=== PATIENT | male | born 1975 | race Caucasian/White ===

== ENCOUNTER 2016-10-28 01:05 | Emergency (ER) | payer SELFPAY ==
[2016-10-28 01:14] VITALS: BP 128/97; BMI 28.1
--- NOTE | 2016-10-28 01:35 | DR.GENAD ---
HPI - PCP Primary Care Physician: nfd - Complaint/Symptoms Chief Complaint:: Patient c/o body swelling and shortness of breath for several months - Nurses notes reviewed Nurses Notes Review: Yes - Source History Provided: Patient - Mode of Arrival Mode of Arrival: Ambulatory - Timing Onset of Chief Complaint: 08/31/16 Came on: Gradually - Duration Duration: Constant How lon Duration: Weeks - Location Location: [facility] - Severity Severity: Mild - Modifying Factors Worsens:: nothing - Associated Signs and Symptoms Associated Signs and Symptoms: fidgety PMH - PMH Past Medical History: No Past Surgical History: Yes Surgical History: Ortho Surgery Past Surgical History Comment: neck - Family History History of Family Medical Conditions: Yes Family Medical History: MD - Social History Does patient currently use any type of tobacco product: Yes Have you used tobacco products in the last 12 months: Yes Type of Tobacco Use: Cigarettes How many years tobacco product used: 16 Alcohol Use: Occasionally Do you use any recreational Drugs:: No (Patient denies drugs but stated "I was at a [employer] party & my friends got me high") Lives Where: Home - infectious screening In the last 2 months have you had wt loss of >10#?: NO Have you had fever, night sweats or hemotysis?: No Have you traveled outside the country in the last 6 months?: No Isolation: Standard ROS - Review of Systems Constitutional: No Symptoms Reported Eyes: No Symptoms Reported ENTM: No Symptoms Reported Respiratoy: Short of Breath Cardiovascular: No Symptoms Reported Gastrointestinal/Abdominal: No Symptoms Reported Genitourinary: No Symptoms Reported Neurological: No Symptoms Reported Musculoskeletal: No Symptoms Reported Integumentary: No Symptoms Reported Psychiatric: Anxiety PE - Vital Signs Vitals: Pulse Rate 144 Respiratory Rate 23 Blood Pressure 128/97 O2 Sat by Pulse Oximetry 100 - General Limitations: No Limitations General Appearance: Alert, In No Apparent Distress - Head Head Exam: Normal Inspection - Eyes Eye exam: Normal Appearance, EOMI. negative: Scleral Icterus, Conjunctival Injection - ENT ENT Exam: Normal Oropharynx External Ear Exam: Normal External Inspection - Neck Neck Exam: Normal Inspection, Full ROM, Trachea Midline - Chest Chest Inspection: Normal Inspection - Respiratory Respiratory Exam: Normal Lung Sounds Bilat. negative: Accessory Muscle Use, Respiratory Distress Respiratory Exam: Bilateral Clear to Auscultation - Cardiovascular Cardiovascular Exam: Tachycardia - Abdominal Exam Abdominal Exam: Normal Inspection, Normal Bowel Sounds, Soft, Distention. negative: Tenderness, Guarding - Extremities Extremities Exam: Normal Inspection, Full ROM, Edema - Back Back Exam: Normal Inspection - Neurologic Neurological Exam: Alert, Oriented X3, CN II-XII Intact - Psychiatric Psychiatric Exam: Agitated - Skin Skin Exam: Intact, Normal Color Course - Treatment Treatment: patient told of findings and refused admission due to mother with alzheimers at home. told to follow up [facility] DR. pleitez for further work up. ROR - Labs Reviewed Result Diagrams: 10/28/16 01:56 10/28/16 01:56 Laboratory: WBC 12.7 X10^3/uL (3.6-10.0) H 10/28/16 01:56 RBC 4.70 X10^6/uL (4.7-6.0) 10/28/16 01:56 Hgb 8.8 g/dL (13.5-18.0) L 10/28/16 01:56 Hct 30.4 % (42.0-54.0) L 10/28/16 01:56 MCV 64.7 fL (80.0-100.0) L 10/28/16 01:56 MCH 18.8 pg (27.0-34.0) L 10/28/16 01:56 MCHC 29.0 g/dL (33.0-35.0) L 10/28/16 01:56 RDW 19.9 % (11.6-16.5) H 10/28/16 01:56 Plt Count 453 X10^3/uL (150.0-450.0) H 10/28/16 01:56 MPV 8.0 fL (7.4-11.0) 10/28/16 01:56 Neut % 77.0 % (42.0-75.0) H 10/28/16 01:56 Lymph % 5.8 % (21.0-51.0) L 10/28/16 01:56 [place] % 14.1 % (0.0-13.0) H 10/28/16 01:56 Eos % 2.6 % (0.9-2.9) 10/28/16 01:56 Baso % 0.5 % (0.2-1.0) 10/28/16 01:56 Neut # 9.8 x10^3/uL (2.2-4.8) H 10/28/16 01:56 Lymph # 0.7 X10^3/uL (1.3-2.9) L 10/28/16 01:56 [place] # 1.8 x10^3/uL (0.3-0.8) H 10/28/16 01:56 Eos # 0.3 x10^3/uL (0.0-0.2) H 10/28/16 01:56 Baso # 0.1 X10^3/uL (0.0-0.1) 10/28/16 01:56 Absolute Nucleated RBC 0.3 /100WBC 10/28/16 01:56 Sodium 134 mmol/L (136-145) L 10/28/16 01:56 Corrected Sodium TNP 10/28/16 01:56 Potassium 5.2 mmol/L (3.5-5.1) H 10/28/16 01:56 Chloride 99 mmol/L (98-107) 10/28/16 01:56 Carbon Dioxide 21.4 mmol/L (21-32) 10/28/16 01:56 BUN 18 mg/dL (7-18) 10/28/16 01:56 Creatinine 1.21 mg/dL (0.70-1.30) 10/28/16 01:56 Est GFR (MDRD) Af Amer > 60 (>60) 10/28/16 01:56 Est GFR (MDRD) Non-Af > 60 (>60) 10/28/16 01:56 Glucose 92 mg/dL (65-99) 10/28/16 01:56 Calcium 8.3 mg/dL (8.5-10.1) L 10/28/16 01:56 Corrected Calcium 9.2 mg/dL (8.5-10.1) 10/28/16 01:56 Total Bilirubin 1.40 mg/dL (0.2-1.0) H 10/28/16 01:56 AST 758 Units/L (15-37) H 10/28/16 01:56 ALT 773 Units/L (12-78) H 10/28/16 01:56 Alkaline Phosphatase 95 Units/L (46-116) 10/28/16 01:56 Ammonia 28 umol/L (11-32) 10/28/16 01:56 B-Natriuretic Peptide 1140 pg/mL (0-79) H* 10/28/16 01:56 Total Protein 6.7 g/dL (6.4-8.2) 10/28/16 01:56 Albumin 2.9 g/dL (3.4-5.0) L 10/28/16 01:56 Globulin 3.8 g/dL (2.5-4.5) 10/28/16 01:56 Albumin/Globulin Ratio 0.8 Ratio (1.1-2.1) L 10/28/16 01:56 Lipase 108 Units/L (73-393) 10/28/16 01:56 Specimen Type Clean catch urine 10/28/16 01:37 Urine Color Marielle (YELLOW) 10/28/16 01:37 Urine Appearance Slightly hazy (CLEAR) 10/28/16 01:37 Urine pH 5.0 (5.0 - 8.0) 10/28/16 01:37 Ur Specific [place] 1.025 (1.000-1.030) 10/28/16 01:37 Urine Protein 3+ (NEGATIVE) 10/28/16 01:37 Urine Glucose (UA) Negative (NEGATIVE) 10/28/16 01:37 Urine Ketones 1+ (NEGATIVE) 10/28/16 01:37 Urine Occult Blood 1+ (NEGATIVE) 10/28/16 01:37 Urine Nitrite Negative (NEGATIVE) 10/28/16 01:37 Urine Bilirubin 1+ (NEGATIVE) 10/28/16 01:37 Urine Urobilinogen 3+ (NORMAL) 10/28/16 01:37 Ur Leukocyte Esterase 1+ (NEGATIVE) 10/28/16 01:37 Urine RBC 2-6 /HPF (NEGATIVE) 10/28/16 01:37 Urine WBC 10-15 /HPF (NEGATIVE) 10/28/16 01:37 Ur Squamous Epith Cells Few /HPF (NEGATIVE) 10/28/16 01:37 Urine Bacteria Trace /HPF (NEGATIVE) 10/28/16 01:37 Ur Culture Indicated? Yes/culture set up 10/28/16 01:37 Urine Opiates Screen Negative (NEG=<300) 10/28/16 01:37 Urine Methadone Screen Negative (NEG=<300) 10/28/16 01:37 Ur Barbiturates Screen Negative (NEG=<200) 10/28/16 01:37 Ur Phencyclidine Scrn Negative (NEG=<25) 10/28/16 01:37 Ur Amphetamines Screen Positive (NEG=<1000) 10/28/16 01:37 U Benzodiazepines Scrn Negative (NEG=<200) 10/28/16 01:37 Urine Cocaine Screen Negative (NEG=<300) 10/28/16 01:37 U Marijuana (THC) Screen Negative (NEG=<50) 10/28/16 01:37 Ethyl Alcohol mg/dL < 3 mg/dL (0-19.9) 10/28/16 01:56 - XRAY XRAY Interpreted by: Radiologist XRAY Findings: chest: cardiomegaly no chf - Diagnosis Discharge Problem: Amphetamine abuse Cirrhosis of liver Qualifiers: Hepatic cirrhosis type: unspecified hepatic cirrhosis Ascites presence: with ascites Qualified Code(s): K74.60 - Unspecified cirrhosis of liver Cirrhosis of liver Qualifiers: Hepatic cirrhosis type: unspecified hepatic cirrhosis Ascites presence: with ascites Qualified Code(s): K74.60 - Unspecified cirrhosis of liver Cirrhosis of liver Qualifiers: Hepatic cirrhosis type: unspecified hepatic cirrhosis Ascites presence: with ascites Qualified Code(s): K74.60 - Unspecified cirrhosis of liver Cirrhosis of liver with ascites Qualifiers: Hepatic cirrhosis type: unspecified hepatic cirrhosis Qualified Code(s): K74.60 - Unspecified cirrhosis of liver - Discharge Plan Condition: Stable Prescriptions: Furosemide [Lasix] 40 mg PO QAM #30 tab - Follow ups/Referrals Follow ups/Referrals: NFD,None [Primary Care Provider] - 3 days - Instructions
[2016-10-28] MEDS ORDERED: NS 500 ML IV 1,000 ML IV ONE (01:46)
[2016-10-28] MEDS ORDERED: NS 1000 ML 1,000 ML ONE (01:50)
--- NOTE | 2016-10-28 02:01 | RAD ---
EXAM: Chest X-ray INDICATION: Shortness of breath COMPARISION: No prior TECHNIQUE: PA and Lat, 2 view FINDINGS: The lungs are clear. The heart is mildly enlarged. No pleural effusion or pneumothorax. The mediasti num is normal. The regional skeleton is intact. IMPRESSION: Cardiomegaly. The remainder of the examination appears unremarkable. Reported By:
[2016-10-28 02:08] LABS: BILIRUBIN,URINE 1+ (NEGATIVE); BLOOD/HEMOGLOBIN,URINE 1+ (NEGATIVE); GLUCOSE, URINE NEGATIVE (NEGATIVE); KETONES,URINE 1+ (NEGATIVE); LEUKOCYTE ESTERASE ,URINE 1+ (NEGATIVE); NITRITES,URINE NEGATIVE (NEGATIVE); PROTEIN,URINE 3+ (NEGATIVE); UROBILINOGEN,URINE 3+ (NORMAL)
[2016-10-28 02:12] LABS: BASOPHILS # (AUTO) 0.1 X10^3/uL (0.0-0.1); BASOPHILS % (AUTO) 0.5 % (0.2-1.0); EOSINOPHILS # (AUTO) 0.3 x10^3/uL (0.0-0.2); EOSINOPHILS % (AUTO) 2.6 % (0.9-2.9); HEMATOCRIT 30.4 % (42.0-54.0); HEMOGLOBIN 8.8 g/dL (13.5-18.0); LYMPHOCYTES # (AUTO) 0.7 X10^3/uL (1.3-2.9); LYMPHOCYTES % (AUTO) 5.8 % (21.0-51.0); MEAN CORPUSCULAR HEMOGLOBIN 18.8 pg (27.0-34.0); MEAN CORPUSCULAR VOLUME 64.7 fL (80.0-100.0); MONOCYTES # (AUTO) 1.8 x10^3/uL (0.3-0.8); MONOCYTES % (AUTO) 14.1 % (0.0-13.0); NEUTROPHILS # (AUTO) 9.8 x10^3/uL (2.2-4.8); PLATELET COUNT 453 X10^3/uL (150.0-450.0); RED CELL DISTRIBUTION WIDTH 19.9 % (11.6-16.5); WHITE BLOOD COUNT 12.7 X10^3/uL (3.6-10.0)
[2016-10-28 02:18] LABS: AMMONIA 28 umol/L (11-32)
[2016-10-28 02:22] LABS: ALANINE AMINOTRANSFERASE 773 Units/L (12-78); ALBUMIN 2.9 g/dL (3.4-5.0); ALKALINE PHOSPHATASE 95 Units/L (46-116); ASPARTATE AMINO TRANSFERASE 758 Units/L (15-37); BLOOD ALCOHOL < 3 mg/dL (0-19.9); BLOOD UREA NITROGEN 18 mg/dL (7-18); CALCIUM 8.3 mg/dL (8.5-10.1); CARBON DIOXIDE 21.4 mmol/L (21-32); CHLORIDE 99 mmol/L (98-107); COR CA(FOR HYPOALB) 9.2 mg/dL (8.5-10.1); CREATININE 1.21 mg/dL (0.70-1.30); GLUCOSE 92 mg/dL (65-99); LIPASE 108 Units/L (73-393); SODIUM 134 mmol/L (136-145); TOTAL PROTEIN 6.7 g/dL (6.4-8.2); eGFR BLACK RACES > 60 (>60); eGFR NON BLACK RACES > 60 (>60)
[2016-10-28 02:29] LABS: B-TYPE NATRIURETIC PEPTIDE 1140 pg/mL (0-79)
[2016-10-28 02:34] LABS: APPEARANCE,URINE SLIGHTLY HAZY (CLEAR); BACTERIA,URINE TRACE /HPF (NEGATIVE); COLOR,URINE AMBER (YELLOW); SQUAMOUS EPITHELIAL CELL,UR FEW /HPF (NEGATIVE)
[2016-10-28] MEDS ORDERED: KAYEXALATE PO ONE (02:56)
[2016-10-28 02:58] LABS: ANISOCYTOSIS SLIGHT; HYPOCHROMASIA 3+; MICROCYTOSIS 2+; PLATELET MORPHOLOGY COMMENT NORMAL (NORMAL)
[2016-10-28 03:06] LABS: BAND NEUTROPHILS % 2 % (0-10)
[2016-10-28] MEDS ORDERED: LASIX PO ONE (03:07)
[2016-10-28] MEDS ORDERED: LASIX ONE (03:08)
[2016-10-28] MEDS ORDERED: KAYEXALATE ONE (03:14)
== END 2016-10-28 03:30 | disposition home or self-care (01) ==
LOC: ER 01:05
DX: K74.60 Unspecified cirrhosis of liver (principal); F15.10 Other stimulant abuse, uncomplicated; R06.02 Shortness of breath
CPT/HCPCS: 36415; 71020; 80053; 80307; 80320; 81001; 82140; 83690; 83880; 85025; 87086; 96365; 99283; A4222; G0434; G6040

== ENCOUNTER 2017-01-27 01:22 | Emergency (ER) | payer SELFPAY ==
[2017-01-27 01:30] VITALS: BMI 28.1
--- NOTE | 2017-01-27 02:01 | DR.CP ---
HPI - Time Seen Time seen: 01:50 - PCP Primary Care Physician: RADHA - HPI Comment HPI Comment: PATIENT WITH CHRONIC LIVER DISEASE WITH ASCITIS PRESENT WITH CHEST HEAVINESS AND INCREASING SOB. PATIENT HAVE ASCITIS THAT IS INCREASING. NO FEVER.OR CONFUSION REPORTED. PATIENT SAID HIS SYMTOMS ARE WORSE TONIGHT. - Complaint Chief Complaint Doctor Comments: SOB, HEAVINESS IN CHEST TIMES Chief Complaint:: HEAVYNESS IN CHEST,SOB - Reviewed Nurses Notes Review: Yes - Source History Provided: Patient - Mode of Arrival Mode of Arrival: Wheelchair - Timing Onset of Chief Complaint: 01/27/17 Came on: Gradually Pain: Present Now - Duration Duration: Constant Duration: Days - Location Location of Chest Pain: Left, Chest - Context Onset: At rest, With light exertion PE Risk Factors: None PMH - PMH Past Medical History: Yes Past Medical History: Cirrhosis Past Surgical History: Yes Surgical History: Ortho Surgery - Family History History of Family Medical Conditions: Yes Family Medical History: [place] - Social History Does patient currently use any type of tobacco product: Yes Have you used tobacco products in the last 12 months: Yes Type of Tobacco Use: None Does any household member use tobacco: Yes Alcohol Use: None Do you use any recreational Drugs:: No Lives With: Family Lives Where: Home - infectious screening In the last 2 months have you had wt loss of >10#?: NO Have you had fever, night sweats or hemotysis?: No Have you traveled outside the country in the last 6 months?: No Isolation: Standard ROS - Review of Systems Constitutional: Weakness, Fatigue, Loss of Appetite. negative: Chills, Diaphoresis, Fever, Malaise Eyes: No Symptoms Reported. negative: Eye Pain, Discharge ENTM: negative: Ear Pain, Nose Discharge, Epistaxis, Nose Congestion, Throat Pain Respiratoy: Non-Productive Cough, Short of Breath, Wheezing. negative: Productive Cough, Hemoptysis Cardiovascular: Chest Pain, Edema Gastrointestinal/Abdominal: Abdominal Pain, Nausea Neurological: Headache, Numbness, Weakness, Dizziness Musculoskeletal: Muscle Pain Integumentary: Change in Color, Wound, Juandice Hematologic/Lymphatic: Easy Bruising Endocrine: No Symptoms Reported All Other Systems: Reviewed and Negative PE - Vitals Vitals: Temperature 98.1 F Pulse Rate [Right Radial] 121 Pulse Rate 131 Respiratory Rate 16 Blood Pressure [Right Arm] 126/98 Blood Pressure 125/84 O2 Sat by Pulse Oximetry 98 - General Limitations: No Limitations General Appearance: Alert, In Distress - Head Head Exam: Normal Inspection - Eyes Eye exam: Scleral Icterus. negative: Conjunctival Injection - ENT ENT Exam: Normal External Ear Exam - Chest Chest Inspection: Symmetric Chest Wall Rise - Respiratory Respiratory Exam: Respiratory Distress Respiratory Exam: Bilateral Wheezing, Bilateral Rhonchi, Upper Wheezing, Upper Rhonchi, Lower Wheezing, Lower Rhonchi - Cardiovascular Cardiovascular Exam: Regular Rate, Normal Rhythm, Normal Heart Sounds Pulse: Normal, Radial, Femoral Edema: Normal - Abdominal Exam Abdominal Exam: Normal Bowel Sounds, Soft, Tenderness, Ascites Abdominal Tenderness: Diffuse, Mild - Extremities Extremities Exam: Edema - Back Back Exam: Normal Inspection - Neurologic Neurological Exam: Alert, Oriented X3, CN II-XII Intact - Psychiatric Psychiatric Exam: Anxious - Skin Skin Exam: Other (SLIGHT JAUNDICE) MDM - Additional Information Additional Information Obtained From: Family - Differential Diagnosis Differential Diagnosis: Angina, Chest Wall Pain, Cholelithasis, CHF, Costochondritis, Esophageal Reflux/Spasm, Gastritis, Myocardial Infarction, Pericarditis, Pleuritis, Pancreatitis, Pneumonia, Pneumothorax, Pulmonary Embolus Course - Treatment Treatment: SEE ORDERS. PATIENT DID NOT WISH TO BE HOSPITALIZE AT THIS TIME, HE SIGN AMA. LASIX IV , DIURESING 750CC PLUS URINE IN ED. - Consultation Consultation Comments: DISCUSS PATIENT WITH DR. KRUSE. HE WILL ADMIT PATIENT. - Education/Counseling Education/Counseling: Patient, Family, Education Educated On: Treatment, Diagnosis, Needs for Follow Up ROR - Labs Reviewed Laboratory Results Reviewed?: Yes Result Diagrams: 01/27/17 02:20 01/27/17 02:20 Laboratory: WBC 9.8 X10^3/uL (3.6-10.0) 01/27/17 02:20 RBC 5.25 X10^6/uL (4.7-6.0) 01/27/17 02:20 Hgb 9.5 g/dL (13.5-18.0) L 01/27/17 02:20 Hct 30.6 % (42.0-54.0) L 01/27/17 02:20 MCV 58.4 fL (80.0-100.0) L 01/27/17 02:20 MCH 18.1 pg (27.0-34.0) L 01/27/17 02:20 MCHC 30.9 g/dL (33.0-35.0) L 01/27/17 02:20 RDW 22.9 % (11.6-16.5) H 01/27/17 02:20 Plt Count 357 X10^3/uL (150.0-450.0) 01/27/17 02:20 Plt Count Comment Adequate (ADEQUATE) 01/27/17 02:20 MPV 8.6 fL (7.4-11.0) 01/27/17 02:20 Neut % 74.3 % (42.0-75.0) 01/27/17 02:20 Lymph % 12.5 % (21.0-51.0) L 01/27/17 02:20 [place] % 11.1 % (0.0-13.0) 01/27/17 02:20 Eos % 1.2 % (0.9-2.9) 01/27/17 02:20 Baso % 0.9 % (0.2-1.0) 01/27/17 02:20 Neut # 7.3 x10^3/uL (2.2-4.8) H 01/27/17 02:20 Lymph # 1.2 X10^3/uL (1.3-2.9) L 01/27/17 02:20 [place] # 1.1 x10^3/uL (0.3-0.8) H 01/27/17 02:20 Eos # 0.1 x10^3/uL (0.0-0.2) 01/27/17 02:20 Baso # 0.1 X10^3/uL (0.0-0.1) 01/27/17 02:20 Absolute Nucleated RBC 0.1 /100WBC 01/27/17 02:20 Plt Morphology Comment Normal (NORMAL) 01/27/17 02:20 RBC Morphology Abnormal (NORMAL) 01/27/17 02:20 Hypochromasia 1+ A 01/27/17 02:20 Poikilocytosis 2+ A 01/27/17 02:20 Anisocytosis 2+ A 01/27/17 02:20 Microcytosis 1+ A 01/27/17 02:20 Sodium 136 mmol/L (136-145) 01/27/17 02:20 Corrected Sodium TNP 01/27/17 02:20 Potassium 3.4 mmol/L (3.5-5.1) L 01/27/17 02:20 Chloride 100 mmol/L (98-107) 01/27/17 02:20 Carbon Dioxide 23.4 mmol/L (21-32) 01/27/17 02:20 BUN 15 mg/dL (7-18) 01/27/17 02:20 Creatinine 1.14 mg/dL (0.70-1.30) 01/27/17 02:20 Est GFR (MDRD) Af Amer > 60 (>60) 01/27/17 02:20 Est GFR (MDRD) Non-Af > 60 (>60) 01/27/17 02:20 Glucose 99 mg/dL (65-99) 01/27/17 02:20 Calcium 8.2 mg/dL (8.5-10.1) L 01/27/17 02:20 Corrected Calcium 9.2 mg/dL (8.5-10.1) 01/27/17 02:20 Total Bilirubin 2.00 mg/dL (0.2-1.0) H 01/27/17 02:20 AST 23 Units/L (15-37) 01/27/17 02:20 ALT 22 Units/L (12-78) 01/27/17 02:20 Alkaline Phosphatase 96 Units/L (46-116) 01/27/17 02:20 Creatine Kinase 49 Units/L (39-308) 01/27/17 02:20 CK-MB (CK-2) < 1.0 ng/mL (0-4.0) 01/27/17 02:20 CK/CKMB % Calc 2.0 % (<4) 01/27/17 02:20 Troponin I 0.05 ng/mL (0-1.5) 01/27/17 02:20 B-Natriuretic Peptide 865 pg/mL (0-79) H* 01/27/17 02:20 Total Protein 6.7 g/dL (6.4-8.2) 01/27/17 02:20 Albumin 2.7 g/dL (3.4-5.0) L 01/27/17 02:20 Globulin 4.0 g/dL (2.5-4.5) 01/27/17 02:20 Albumin/Globulin Ratio 0.7 Ratio (1.1-2.1) L 01/27/17 02:20 - XRAY XRAY Interpreted by: Radiologist XRAY Findings: REPORT DISCUSS WITH PATIENT. - Diagnosis Discharge Problem: CHF (congestive heart failure), Respiratory distress, Liver cirrhosis, Left against medical advice - Discharge Plan Condition: Stable - Follow ups/Referrals Follow ups/Referrals: NFD,None [Primary Care Provider] - 3 days - Instructions
[2017-01-27 02:39] LABS: BASOPHILS # (AUTO) 0.1 X10^3/uL (0.0-0.1); BASOPHILS % (AUTO) 0.9 % (0.2-1.0); EOSINOPHILS # (AUTO) 0.1 x10^3/uL (0.0-0.2); EOSINOPHILS % (AUTO) 1.2 % (0.9-2.9); HEMATOCRIT 30.6 % (42.0-54.0); HEMOGLOBIN 9.5 g/dL (13.5-18.0); LYMPHOCYTES # (AUTO) 1.2 X10^3/uL (1.3-2.9); LYMPHOCYTES % (AUTO) 12.5 % (21.0-51.0); MEAN CORPUSCULAR HEMOGLOBIN 18.1 pg (27.0-34.0); MEAN CORPUSCULAR HGB CONC 30.9 g/dL (33.0-35.0); MEAN CORPUSCULAR VOLUME 58.4 fL (80.0-100.0); MEAN PLATELET VOLUME 8.6 fL (7.4-11.0); MONOCYTES # (AUTO) 1.1 x10^3/uL (0.3-0.8); MONOCYTES % (AUTO) 11.1 % (0.0-13.0); NEUTROPHILS # (AUTO) 7.3 x10^3/uL (2.2-4.8); NEUTROPHILS % (AUTO) 74.3 % (42.0-75.0); PLATELET COUNT 357 X10^3/uL (150.0-450.0); RED BLOOD COUNT 5.25 X10^6/uL (4.7-6.0); RED CELL DISTRIBUTION WIDTH 22.9 % (11.6-16.5); WHITE BLOOD COUNT 9.8 X10^3/uL (3.6-10.0)
--- NOTE | 2017-01-27 02:42 | RAD ---
EXAM: Chest X-ray INDICATION: Shortness of breath COMPARISION: In prior exam from October 28, 2016 TECHNIQUE: Single view FINDINGS: The heart is mildly enlarged and there is central vascular congestion. The interstitial markings are prominent bilaterally. No pneumothorax or pleural effusion. No focal lung parenchymal consolidation identified. The regional skeleton is intact. IMPRESSION: Findings are most characteristic of changes associated congestive heart failure. There is cardiomega ly, central vascular congestion, and interstitial edema. Reported By:
[2017-01-27 02:48] LABS: BLOOD UREA NITROGEN 15 mg/dL (7-18); CALCIUM 8.2 mg/dL (8.5-10.1); CARBON DIOXIDE 23.4 mmol/L (21-32); CHLORIDE 100 mmol/L (98-107); CREATININE 1.14 mg/dL (0.70-1.30); GLUCOSE 99 mg/dL (65-99); SODIUM 136 mmol/L (136-145); TROPONIN I 0.05 ng/mL (0-1.5); eGFR BLACK RACES > 60 (>60); eGFR NON BLACK RACES > 60 (>60)
[2017-01-27 02:53] LABS: ALANINE AMINOTRANSFERASE 22 Units/L (12-78); ALBUMIN 2.7 g/dL (3.4-5.0); ALKALINE PHOSPHATASE 96 Units/L (46-116); ASPARTATE AMINO TRANSFERASE 23 Units/L (15-37); COR CA(FOR HYPOALB) 9.2 mg/dL (8.5-10.1); CREATINE KINASE 49 Units/L (39-308); CREATINE KINASE MB < 1.0 ng/mL (0-4.0); TOTAL PROTEIN 6.7 g/dL (6.4-8.2)
[2017-01-27 03:03] LABS: B-TYPE NATRIURETIC PEPTIDE 865 pg/mL (0-79)
[2017-01-27 03:08] LABS: ANISOCYTOSIS 2+; HYPOCHROMASIA 1+; MICROCYTOSIS 1+; PLATELET MORPHOLOGY COMMENT NORMAL (NORMAL)
[2017-01-27 03:09] LABS: POIKILOCYTOSIS 2+
[2017-01-27 03:12] VITALS: BP 126/98
[2017-01-27] MEDS ORDERED: LASIX IVP ONE ×2 (03:45→03:52)
[2017-01-27] MEDS ORDERED: POTASSIUM CHLORIDE LIQ 20 MEQ UDC PO ONE (03:45)
[2017-01-27] MEDS ORDERED: POTASSIUM CHLORIDE LIQ 20 MEQ UDC ONE (03:49)
== END 2017-01-27 04:55 | disposition left against medical advice (07) ==
LOC: ER 01:22
DX: I50.9 Heart failure, unspecified (principal); R06.09 Other forms of dyspnea; K74.69 Other cirrhosis of liver
CPT/HCPCS: 36415; 71010; 80053; 82550; 82553; 83880; 84484; 85025; 93005; 93010; 96365; 96374; 96375; 99283; A4222; J1940

== ENCOUNTER 2017-02-01 15:38 | Emergency (ER) | payer SELFPAY ==
[2017-02-01 15:46] VITALS: BP 137/91; BMI 30.1
--- NOTE | 2017-02-01 16:29 | DR.SOBA ---
HPI - Time Seen Time seen: 16:15 - Primary Care Physician Primary Care Physician: RADHA - HPI Comment HPI Comment: Patient states that he can not sleep lying down, he must sit up at angle. He is on lasix 40mg daily with a history of congestive heart failure. He admits to drinking three gallons of fluid today. He presents with dyspnea, admits to PND. - Complaints Chief Complaint Doctors Comments: Patient presents with c/o dyspnea for 3 three days. He does smoke but has decreased according to him. Chief Complaint:: SHORTNESS OF BREATH Self Treatment fo Chief Complaint: LASIX 40MG - Source History Provided: Patient - Mode of Arrival Mode of Arrival: Ambulatory - Timing Onset of Chief Complaint: 01/29/17 PMH - PMH Past Medical History: No Past Medical History: Cirrhosis Past Surgical History: Yes Surgical History: Ortho Surgery Past Surgical History Comment: SKIN GRAFT AND REMOVED NERVES R ARM - Family History History of Family Medical Conditions: Yes Family Medical History: ND Family Medical History Comment: CHIRROSIS - Social History Type of Tobacco Use: Cigarettes Does any household member use tobacco: Yes Alcohol Use: None Do you use any recreational Drugs:: No Lives With: Family Lives Where: Home - infectious screening In the last 2 months have you had wt loss of >10#?: NO Have you had fever, night sweats or hemotysis?: No Have you traveled outside the country in the last 6 months?: No Isolation: Standard ROS - Review of Systems Constitutional: negative: Diaphoresis Eyes: No Symptoms Reported ENTM: No Symptoms Reported Respiratoy: Short of Breath Cardiovascular: Edema. negative: Chest Pain Gastrointestinal/Abdominal: No Symptoms Reported Genitourinary: No Symptoms Reported Neurological: No Symptoms Reported Musculoskeletal: No Symptoms Reported Integumentary: No Symptoms Reported Hematologic/Lymphatic: No Symptoms Reported, Swollen Glands Endocrine: No Symptoms Reported Psychiatric: No Symptoms Reported All Other Systems: Reviewed and Negative PE - Vital Signs Vitals: Temperature 97.9 F Pulse Rate 136 Respiratory Rate 20 Blood Pressure [Right Arm] 126/98 Blood Pressure 137/91 O2 Sat by Pulse Oximetry 97 - General General Appearance: Alert, In Distress - Head Head Exam: Normal Inspection, Atraumatic - Eyes Eye exam: Normal Appearance, PERRL, EOMI - ENT ENT Exam: Normal Exam - Neck Neck Exam: Normal Inspection, Full ROM - Chest Chest Inspection: Normal Inspection - Respiratory Respiratory Exam: Normal Lung Sounds Bilat Respiratory Exam: Bilateral Clear to Auscultation - Cardiovascular Cardiovascular Exam: Regular Rate, Normal Rhythm - Abdominal Exam Abdominal Exam: Normal Inspection, Normal Bowel Sounds Abdominal Tenderness: RUQ - Extremities Extremities Exam: Edema - Back Back Exam: Normal Inspection - Neurologic Neurological Exam: Alert, Oriented X3, CN II-XII Intact - Psychiatric Psychiatric Exam: Normal Affect - Skin Skin Exam: Warm, Dry, Intact Course - Treatment Treatment: Diuressed 3.6L fluid--non tachypneic, 123/89 , R16 HR 100, 97% - Reevaluation 1st: Improved ROR - Labs Reviewed Result Diagrams: 02/01/17 16:45 02/01/17 22:20 Laboratory: WBC 10.9 X10^3/uL (3.6-10.0) H 02/01/17 16:45 RBC 5.53 X10^6/uL (4.7-6.0) 02/01/17 16:45 Hgb 10.0 g/dL (13.5-18.0) L 02/01/17 16:45 Hct 32.8 % (42.0-54.0) L 02/01/17 16:45 MCV 59.3 fL (80.0-100.0) L 02/01/17 16:45 MCH 18.2 pg (27.0-34.0) L 02/01/17 16:45 MCHC 30.7 g/dL (33.0-35.0) L 02/01/17 16:45 RDW 24.2 % (11.6-16.5) H 02/01/17 16:45 Plt Count 418 X10^3/uL (150.0-450.0) 02/01/17 16:45 Plt Count Comment Adequate (ADEQUATE) 02/01/17 16:45 MPV 8.7 fL (7.4-11.0) 02/01/17 16:45 Neut % 80.9 % (42.0-75.0) H 02/01/17 16:45 Lymph % 9.1 % (21.0-51.0) L 02/01/17 16:45 [place] % 9.6 % (0.0-13.0) 02/01/17 16:45 Eos % 0.4 % (0.9-2.9) L 02/01/17 16:45 Baso % 0 % (0.2-1.0) L 02/01/17 16:45 Neut # 8.8 x10^3/uL (2.2-4.8) H 02/01/17 16:45 Lymph # 1.0 X10^3/uL (1.3-2.9) L 02/01/17 16:45 [place] # 1.0 x10^3/uL (0.3-0.8) H 02/01/17 16:45 Eos # 0.0 x10^3/uL (0.0-0.2) 02/01/17 16:45 Baso # 0.0 X10^3/uL (0.0-0.1) 02/01/17 16:45 Absolute Nucleated RBC 0.1 /100WBC 02/01/17 16:45 Plt Morphology Comment Normal (NORMAL) 02/01/17 16:45 RBC Morphology Abnormal (NORMAL) 02/01/17 16:45 Hypochromasia 2+ A 02/01/17 16:45 Poikilocytosis 2+ A 02/01/17 16:45 Anisocytosis 2+ A 02/01/17 16:45 Microcytosis 1+ A 02/01/17 16:45 D-Dimer 3230 ng/mL (0-400) H* 02/01/17 16:45 Sample Site Lb 02/01/17 16:46 ABG pH 7.540 (7.35-7.45) H 02/01/17 16:46 ABG pCO2 26.0 mmHg (35.0-45.0) L 02/01/17 16:46 ABG pO2 109.0 mmHg (80.0-100.0) H 02/01/17 16:46 ABG HCO3 22.2 mmol/L (22-26) 02/01/17 16:46 ABG O2 Saturation 99.0 % (90-100) 02/01/17 16:46 ABG Base Excess 0.8 mmol/L (-2.0-2.0) 02/01/17 16:46 Mike Test Pos 02/01/17 16:46 A-a Gradient 87.0 mmHg 02/01/17 16:46 FiO2 32.000 02/01/17 16:46 Blood Gas Comments Pt [facility] 02/01/17 16:46 Sodium 137 mmol/L (136-145) 02/01/17 22:20 Corrected Sodium TNP 02/01/17 22:20 Potassium 3.8 mmol/L (3.5-5.1) 02/01/17 22:20 Chloride 100 mmol/L (98-107) 02/01/17 22:20 Carbon Dioxide 25.2 mmol/L (21-32) 02/01/17 22:20 BUN 18 mg/dL (7-18) 02/01/17 22:20 Creatinine 1.02 mg/dL (0.70-1.30) 02/01/17 22:20 Est GFR (MDRD) Af Amer > 60 (>60) 02/01/17 22:20 Est GFR (MDRD) Non-Af > 60 (>60) 02/01/17 22:20 Glucose 98 mg/dL (65-99) 02/01/17 22:20 Calcium 9.0 mg/dL (8.5-10.1) 02/01/17 22:20 Corrected Calcium 10.0 mg/dL (8.5-10.1) 02/01/17 16:45 Total Bilirubin 2.00 mg/dL (0.2-1.0) H 02/01/17 16:45 AST 33 Units/L (15-37) 02/01/17 16:45 ALT 24 Units/L (12-78) 02/01/17 16:45 Alkaline Phosphatase 116 Units/L (46-116) 02/01/17 16:45 B-Natriuretic Peptide 2220 pg/mL (0-79) H* 02/01/17 16:45 Total Protein 7.6 g/dL (6.4-8.2) 02/01/17 16:45 Albumin 2.9 g/dL (3.4-5.0) L 02/01/17 16:45 Globulin 4.7 g/dL (2.5-4.5) H 02/01/17 16:45 Albumin/Globulin Ratio 0.6 Ratio (1.1-2.1) L 02/01/17 16:45 Specimen Type Clean catch urine 02/01/17 19:56 Urine Color Yellow (YELLOW) 02/01/17 19:56 Urine Appearance Hazy (CLEAR) 02/01/17 19:56 Urine pH 6.5 (5.0 - 8.0) 02/01/17 19:56 Ur Specific [place] 1.010 (1.000-1.030) 02/01/17 19:56 Urine Protein 3+ (NEGATIVE) 02/01/17 19:56 Urine Glucose (UA) Negative (NEGATIVE) 02/01/17 19:56 Urine Ketones Negative (NEGATIVE) 02/01/17 19:56 Urine Occult Blood 1+ (NEGATIVE) 02/01/17 19:56 Urine Nitrite Negative (NEGATIVE) 02/01/17 19:56 Urine Bilirubin Negative (NEGATIVE) 02/01/17 19:56 Urine Urobilinogen Normal (NORMAL) 02/01/17 19:56 Ur Leukocyte Esterase Negative (NEGATIVE) 02/01/17 19:56 Urine RBC 0-2 /HPF (NEGATIVE) 02/01/17 19:56 Urine WBC 0-2 /HPF (NEGATIVE) 02/01/17 19:56 Ur Squamous Epith Cells Negative /HPF (NEGATIVE) 02/01/17 19:56 Urine Bacteria Negative /HPF (NEGATIVE) 02/01/17 19:56 Ur Culture Indicated? Yes/culture set up 02/01/17 19:56 Urine Opiates Screen Negative (NEG=<300) 02/01/17 17:01 Urine Methadone Screen Negative (NEG=<300) 02/01/17 17:01 Ur Barbiturates Screen Negative (NEG=<200) 02/01/17 17:01 Ur Phencyclidine Scrn Negative (NEG=<25) 02/01/17 17:01 Ur Amphetamines Screen Positive (NEG=<1000) 02/01/17 17:01 U Benzodiazepines Scrn Negative (NEG=<200) 02/01/17 17:01 Urine Cocaine Screen Negative (NEG=<300) 02/01/17 17:01 U Marijuana (THC) Screen Negative (NEG=<50) 02/01/17 17:01 - XRAY XRAY Interpreted by: Radiologist (Chest: 1626-Cardiomegaly with trace pulmonary edema and left effusion,1826:cardiomegaly with trace pulmonary edema CT with: No large cnetral PTE, Poor opacification of the left lower lobe pulmonary arteries in the segmental region could be due to underlying atelectasis, motion artifact and bolus timing with cardiac dysfunction. However, distal PTE is not completely excluded. Correlate clinically and follow up as needed. Cardiomegaly and edema with bilateral effusion suggest CHF. Bilateral patchy pulmonary opacities could represent atypical appearance of edema but more rounded opacities in the lung bases and more focal consolidation in the left lung base are concerning for pneumonia, Large liver with abdominal ascites. hepatic dysfunction due to cardiac dysfunction is possible, Cirrhosis is not completely excluded.) - Diagnosis Discharge Problem: Pulmonary edema cardiac cause CHF (congestive heart failure) Qualifiers: Congestive heart failure type: systolic Congestive heart failure chronicity: acute on chronic Qualified Code(s): I50.23 - Acute on chronic systolic ( congestive) heart failure Pneumonia Qualifiers: Pneumonia type: due to unspecified organism Laterality: left Lung location: lower lobe of lung Qualified Code(s): J18.1 - Lobar pneumonia, unspecified organism - Discharge Plan Condition: Stable - Follow ups/Referrals Follow ups/Referrals: NFD,None [Primary Care Provider] - 3 days - Instructions
[2017-02-01 16:51] LABS: ABG BASE EXCESS 0.8 mmol/L (-2.0-2.0); ABG HCO3 22.2 mmol/L (22-26)
[2017-02-01 16:52] LABS: ABG ALLEN TEST POS
[2017-02-01 16:59] LABS: BASOPHILS % (AUTO) 0 % (0.2-1.0); EOSINOPHILS % (AUTO) 0.4 % (0.9-2.9); HEMATOCRIT 32.8 % (42.0-54.0); LYMPHOCYTES % (AUTO) 9.1 % (21.0-51.0); MEAN CORPUSCULAR HEMOGLOBIN 18.2 pg (27.0-34.0); MEAN CORPUSCULAR HGB CONC 30.7 g/dL (33.0-35.0); MEAN CORPUSCULAR VOLUME 59.3 fL (80.0-100.0); MEAN PLATELET VOLUME 8.7 fL (7.4-11.0); MONOCYTES % (AUTO) 9.6 % (0.0-13.0); NEUTROPHILS # (AUTO) 8.8 x10^3/uL (2.2-4.8); NEUTROPHILS % (AUTO) 80.9 % (42.0-75.0); PLATELET COUNT 418 X10^3/uL (150.0-450.0); RED BLOOD COUNT 5.53 X10^6/uL (4.7-6.0); RED CELL DISTRIBUTION WIDTH 24.2 % (11.6-16.5); WHITE BLOOD COUNT 10.9 X10^3/uL (3.6-10.0)
--- NOTE | 2017-02-01 17:08 | RAD ---
CHEST RADIOGRAPHS PA AND LATERAL VIEWS CLINICAL HISTORY: 41-year-old male with dyspnea, shortness of breath and cough. COMPARISON: Chest radiograph January 27, 2017. FINDINGS: The cardiopericardial silhouette is stably enlarged. Trace pulmonary edema with left effu therese without focal consolidation or pneumothorax. Low lung volumes. Central pulmonary vascular conge stion. Chronic prominence of the interstitium. Imaged osseous structures are intact. Soft tissues ar e unremarkable. IMPRESSION: Cardiomegaly with trace pulmonary edema and left effusion. Reported By:
[2017-02-01 17:12] LABS: ALANINE AMINOTRANSFERASE 24 Units/L (12-78); ALBUMIN 2.9 g/dL (3.4-5.0); ALKALINE PHOSPHATASE 116 Units/L (46-116); ASPARTATE AMINO TRANSFERASE 33 Units/L (15-37); BLOOD UREA NITROGEN 18 mg/dL (7-18); CALCIUM 9.1 mg/dL (8.5-10.1); CARBON DIOXIDE 22.8 mmol/L (21-32); CHLORIDE 99 mmol/L (98-107); CREATININE 1.27 mg/dL (0.70-1.30); GLUCOSE 107 mg/dL (65-99); SODIUM 136 mmol/L (136-145); TOTAL PROTEIN 7.6 g/dL (6.4-8.2); eGFR BLACK RACES > 60 (>60); eGFR NON BLACK RACES > 60 (>60)
[2017-02-01 17:15] LABS: BILIRUBIN,URINE NEGATIVE (NEGATIVE); BLOOD/HEMOGLOBIN,URINE NEGATIVE (NEGATIVE); GLUCOSE, URINE NEGATIVE (NEGATIVE); KETONES,URINE NEGATIVE (NEGATIVE); LEUKOCYTE ESTERASE ,URINE NEGATIVE (NEGATIVE); NITRITES,URINE NEGATIVE (NEGATIVE); PH,URINE 6.5 (5.0 - 8.0); PROTEIN,URINE 2+ (NEGATIVE); UROBILINOGEN,URINE 1+ (NORMAL)
[2017-02-01 17:22] LABS: ANISOCYTOSIS 2+; HYPOCHROMASIA 2+; PLATELET MORPHOLOGY COMMENT NORMAL (NORMAL); POIKILOCYTOSIS 2+
[2017-02-01 17:23] LABS: APPEARANCE,URINE HAZY (CLEAR); BACTERIA,URINE TRACE /HPF (NEGATIVE); COLOR,URINE YELLOW (YELLOW); RBC,URINE 0-5 /HPF (NEGATIVE); SQUAMOUS EPITHELIAL CELL,UR RARE /HPF (NEGATIVE)
[2017-02-01 17:24] LABS: MICROCYTOSIS 1+
[2017-02-01 17:39] LABS: D DIMER 3230 ng/mL (0-400)
[2017-02-01 17:40] LABS: B-TYPE NATRIURETIC PEPTIDE 2220 pg/mL (0-79)
[2017-02-01] MEDS ORDERED: NS 100 ML IV 100 ML IV ONE (17:50)
[2017-02-01] MEDS ORDERED: NS 1000 ML 1,000 ML ONE (18:16)
--- NOTE | 2017-02-01 18:22 | CT ---
CT angiogram chest with contrast Indication: Elevated D-dimer and dyspnea. Swelling in lower extremities. Technique: Helical images through the chest after IV contrast per protocol. Coronal sagittal reforma ts provided. Chest radiograph from earlier the same day reviewed. MIP images provided. Findings: Limited images through the upper abdomen shows ascites and prominent liver. Cirrhosis is p ossible. Head dysfunction from vascular congestion possible. Review of bone windows shows no destruc tive osseous lesion. Chest: Pulmonary artery bolus timing is adequate proximally without large central pulmonary artery f illing defect identified. Motion artifact and bolus timing distally limits sensitivity somewhat. How ever, poor filling of left lower lobe pulmonary arteries is noted. However, motion artifact limits d efinitive characterization of PTE. There bilateral effusions and cardiomegaly. Effusions are moderate to large. No specific evidence ri ght heart strain seen. The aorta appears normal. Shoddy mediastinal lymph nodes are noted. There is patchy ground-glass opacities seen scattered throughout both lungs. More rounded opacity seen in the lung bases could represent developing pneumonia or even septic embolic disease. Underlying lesions need to be excluded. Impression: 1. No large central PTE. 2. Poor opacification of the left lower lobe pulmonary arteries in the segmental region could be due to underlying atelectasis, motion artifact and bolus timing with cardiac dysfunction. However, dist al PTE is not completely excluded. Correlate clinically and followup as needed. 3. Cardiomegaly and edema with bilateral effusions suggest CHF. 4. Bilateral patchy pulmonary opacities could represent atypical appearance of edema but more rounde d opacities in the lung bases and more focal consolidation in the left lung base are concerning for pneumonia. Septic embolic source possible. Correlate clinically for signs of bacteremia. 5. Large liver with abdominal ascites. Hepatic dysfunction due to cardiac dysfunction is possible. C irrhosis is not completely excluded. Reported By:
[2017-02-01] MEDS ORDERED: LASIX IVP ONE ×2 (19:46→19:55)
[2017-02-01] MEDS ORDERED: LASIX IVP SCH (20:00)
[2017-02-01 20:40] LABS: BILIRUBIN,URINE NEGATIVE (NEGATIVE); BLOOD/HEMOGLOBIN,URINE 1+ (NEGATIVE); GLUCOSE, URINE NEGATIVE (NEGATIVE); KETONES,URINE NEGATIVE (NEGATIVE); LEUKOCYTE ESTERASE ,URINE NEGATIVE (NEGATIVE); NITRITES,URINE NEGATIVE (NEGATIVE); PH,URINE 6.5 (5.0 - 8.0); PROTEIN,URINE 3+ (NEGATIVE); UROBILINOGEN,URINE NORMAL (NORMAL)
[2017-02-01 20:46] LABS: APPEARANCE,URINE HAZY (CLEAR); BACTERIA,URINE NEGATIVE /HPF (NEGATIVE); COLOR,URINE YELLOW (YELLOW); RBC,URINE 0-2 /HPF (NEGATIVE); SQUAMOUS EPITHELIAL CELL,UR NEGATIVE /HPF (NEGATIVE)
[2017-02-01 22:28] LABS: BLOOD UREA NITROGEN 18 mg/dL (7-18); CARBON DIOXIDE 25.2 mmol/L (21-32); CHLORIDE 100 mmol/L (98-107); CREATININE 1.02 mg/dL (0.70-1.30); GLUCOSE 98 mg/dL (65-99); SODIUM 137 mmol/L (136-145); eGFR BLACK RACES > 60 (>60); eGFR NON BLACK RACES > 60 (>60)
--- NOTE | 2017-02-01 22:50 | RAD ---
AP Chest Indication: Shortness breath with cough, revaluation after Lasix Comparison: 02/01/2017 at 5:00 p.m. Findings: The trachea is midline. The heart size is enlarged. No significant change in moderate size left and small right-sided pleural effusions with increased interstitial opacities bilaterally. Dense consol idation within the left lung base likely represents compressive atelectasis however developing infil trate is not entirely excluded. No pneumothorax. No acute osseous abnormality. Impression: Since recent prior examination no significant change with persistent cardiomegaly, moder ate size left and small right-sided pleural effusions and increased interstitial opacities consisten t with interstitial edema/volume overload. Consolidation within the left lung base likely represents compressive atelectasis however developing infiltrate should be excluded on a clinical basis. Reported By:
== END 2017-02-02 00:50 | disposition left against medical advice (07) ==
LOC: ER 16:06
DX: I50.23 Acute on chronic systolic (congestive) heart failure (principal); J18.1 Lobar pneumonia, unspecified organism; I51.7 Cardiomegaly; J81.1 Chronic pulmonary edema; R06.02 Shortness of breath; Z72.0 Tobacco use
CPT/HCPCS: 36415; 36600; 51702; 71010; 71020; 71275; 80048; 80053; 80307; 81001; 82803; 83880; 85025; 85378; 87086; 96365; 96374; 99283; A4222; G0434; J1940